=== PATIENT | male | born 1960 | race African-American/Black ===

== ENCOUNTER 2017-06-16 11:04 | Outpatient (CLI) | payer MEDICARE, OTHER ==
[~2017-06-16 11:04] MED LIST: AMLODIPINE BESYL5 MG ORAL; CARISOPRODOL350 MG ORAL; CHANTIX1 MG PO; CIPROFLOXACIN500 M2 ORAL; FUROSEMIDE40 MG ORAL; GLIMEPIRIDE1 MG ORAL; IBUPROFEN200 MG ORAL; JANUMET 50-1,01 EACH ORAL; PANTOPRAZOLE SO40 MG ORAL; SIMVASTATIN20 MG ORAL; TEMAZEPAM30 MG ORAL
--- NOTE | 2017-06-16 16:26 | Diagnostic Imaging Report ---
Indication: Right leg mass seen on prior CT scan Technique: Grayscale duplex images of the medial right lower leg Comparison: None Findings: There is an irregular mixed echogenicity, mostly hypoechoic, fluid collection in the medial right lower leg. This measures 3 x 1.6 x 2.1 cm. It demonstrates compressibility and mobility of the contents. Appears to be avascular Impression: Regular 1.6 x 2 x 1 cm right lower leg collection. This most likely represents a hematoma or small abscess. Correlate with clinical findings, consider ultrasound guided aspiration if clinically indicated
== END 2017-06-16 13:04 | disposition home or self-care (01) ==
LOC: ULS 11:04
DX: R22.41 Localized swelling, mass and lump, right lower limb (principal)
CPT/HCPCS: 76882

== ENCOUNTER 2017-06-24 13:45 | Outpatient (CLI) | payer MEDICARE, OTHER ==
--- NOTE | 2017-06-27 10:30 | Diagnostic Imaging Report ---
Indication: Right leg fluid collection. Request made for ultrasound guided aspiration. Comparison: Right leg soft tissue ultrasound 06/16/2017 Technique/findings: Procedure discussed at length with the patient including risks, benefits and alternatives. Informed consent was obtained. Preliminary ultrasound scanning of the region of interest demonstrated the previous seen irregular collection in the subcutaneous tissues of the anterior right leg. A preprocedure timeout was performed. The area of interest was prepped and draped in the usual sterile fashion. An appropriate access site was chosen and local anesthetic with 1% lidocaine. Under real-time ultrasound guidance, an 18-gauge needle was advanced into the collection and aspiration was performed via the needle. A total of 3 cc of thin, sanguinous fluid was returned. The specimen was sent for the requested diagnostic studies. Hemostasis was easily achieved with manual compression a sterile dressing was applied. The patient tolerated the procedure well and left the department in stable condition. Impression: Technically successful aspiration of complex collection in the right leg. Approximately 3 cc of thin, sanguinous fluid was returned and sent for the requested diagnostic studies.
== END 2017-06-24 15:45 | disposition home or self-care (01) ==
LOC: ULS 13:45
DX: R22.41 Localized swelling, mass and lump, right lower limb (principal)
CPT/HCPCS: 87070; 87205; 88104

== ENCOUNTER → 2017-07-18 | Outpatient (CLI) | payer MEDICARE, OTHER ==
--- NOTE | 2017-07-18 11:49 | Diagnostic Imaging Report ---
Indication: Cough Comparison: 05/12/2014 2 views of the chest obtained. Findings: Cardiomediastinal silhouette and pulmonary vascularity are within normal limits for age. The diaphragmatic contour is smooth and costophrenic angles are sharp. No pleural effusions are identified. The bones are osteopenic. Impression: No acute disease
== END | disposition home or self-care (01) ==
LOC: RAD 10:19
DX: R05 Cough (principal); R06.02 Shortness of breath; M85.80 Other specified disorders of bone density and structure, unspecified site
CPT/HCPCS: 71020

== ENCOUNTER 2017-11-11 07:56 | Outpatient (CLI) | payer MEDICARE, OTHER ==
--- NOTE | 2017-11-11 09:20 | Diagnostic Imaging Report ---
Indication: Cough Technique: 2 views of the chest Comparison: 07/09/2017. Findings: Questionable ill-defined faint opacity at the left lateral lung base, overlying the junctions of the posterior ninth and anterior sixth ribs, not evident previously. Lungs and pleural spaces otherwise clear. Normal heart size. There are degenerative changes of the thoracic spine Impression: . Questionable vague lateral basilar opacity, probably artifact of overlapping parenchymal shadows but nodule not excludable. Consider CT for further evaluation No acute process otherwise Findings discussed by phone with Dr. Dent at the time of interpretation
== END 2017-11-11 09:56 | disposition home or self-care (01) ==
LOC: RAD 07:56
DX: R05 Cough (principal)
CPT/HCPCS: 71046

== ENCOUNTER 2017-11-13 12:55 | Outpatient (CLI) | payer MEDICARE, OTHER ==
--- NOTE | 2017-11-13 15:43 | Diagnostic Imaging Report ---
Clinical Indication: Evaluation of possible lung nodule seen on chest radiograph Technique: Spiral acquisitions obtained through the chest. No IV contrast utilized, . Multiplanar reconstructions generated. Total dose length product 1499.91 mGycm. CTDIvol(s) 35.79 mGy. Dose reduction achieved using automated exposure control Comparison: 11/22/2015, also chest radiograph dated 12/11/2017 Findings: Numerous small subpleural blebs or bullae are again demonstrated in the upper lobes. No nodule or mass demonstrated to account for the apparent finding reported on recent chest radiograph. No infiltrates, effusions, masses, or nodules The heart size is normal. No pericardial effusion. No mediastinal or hilar mass or adenopathy demonstrated. There is some dilatation of the main pulmonary artery, which measures up to 38 mm diameter. The included portions of the thyroid are unremarkable. No axillary or chest wall mass or adenopathy. The bones are remarkable for the presence of possible left shoulder bursal loose bodies, also previously demonstrated. The included upper abdominal anatomy is remarkable only for the presence of an accessory splenule. Impression: No mass or nodule seen to account for the apparent nodular abnormality in the left lung base on recent chest radiograph. The finding is therefore presumed to have been artifactual Bilateral upper lobe subpleural bullae or blebs, also described on prior 2016 exam ectatic main pulmonary artery, suggestive of but not diagnostic for pulmonary arterial hypertension Incidental finding of left shoulder bursal loose bodies The CT scanner at [facility] is accredited by the [employer] and the scans are performed using protocols designed to limit radiation exposure to as low as reasonably achievable to attain images of sufficient resolution adequate for diagnostic evaluation.
== END 2017-11-13 14:55 | disposition home or self-care (01) ==
LOC: CAT 12:55
DX: R91.1 Solitary pulmonary nodule (principal); M24.012 Loose body in left shoulder
CPT/HCPCS: 71250